=== PATIENT | female | born 1970 | race Caucasian/White ===

== ENCOUNTER 2016-06-09 11:20 | Emergency (ER) | payer BC ==
[2016-06-09 12:09] VITALS: BP 128/82
--- NOTE | 2016-06-09 12:22 | EDM.PDOC ---
ED HPI Trauma - General Chief Complaint: Lower Extremity Injury/Pain Stated Complaint: ? [id number] Time Seen by Provider: 06/09/16 12:15 Source: Reports: Patient, RN, RN notes reviewed History Limitations: Reports: No limitations - History of Present Illness INITIAL COMMENTS - FREE TEXT/NARRATIVE: Low back pain onset yesterday, radiating into left buttock to left proximal thigh. Denies injury. Denies weakness, numbness, or loss of bowel or bladder control. Patient is being treated for a cough with COPD exacerbation and is currently on Levaquin, prednisone and breathing treatments. Coughing may have caused her back to flare up. History of sciatica. Severity: severe Pain/Injury Location: Reports: back Associated Symptoms: Reports: no other symptoms Allergies/ADRs: Allergies No Known Allergies Allergy (Verified 07/31/13 17:49) Home Medications: Ambulatory Orders Budesonide/Formoterol [Symbicort 160-4.5 MCG] 1 puff INH BID 04/26/14 [ Confirmed 04/26/14] Lisinopril 10 mg PO DAILY 04/26/14 [Confirmed 04/26/14] Simvastatin 20 mg PO DAILY 04/26/14 [Confirmed 04/26/14] Tiotropium [Spiriva HandiHaler] 1 puff INH DAILY 04/26/14 [Confirmed 04/26/14] Insulin Detemir [Levemir Flextouch] 15 unit SQ BIDAC #1 each 04/29/14 glyBURIDE [Micronase] 5 mg PO BIDM #60 tablet 04/29/14 metFORMIN [Glucophage] 1,000 mg PO BIDM #60 tablet 04/29/14 Past Medical History Cardiovascular History: Reports: High cholesterol, Hypertension Respiratory History: Reports: COPD, Other (see below) Other Respiratory History: recent bronchitis Endocrine/Metabolic History: Reports: Diabetes, type II Social & Family History - Family History Family Medical History: Noncontributory - Tobacco Use Smoking Status *Q: Current Every Day Smoker Years of Tobacco use: 30 Packs/Tins Daily: 0.5 Used Tobacco, but Quit: No Second Hand Smoke Exposure: No - Caffeine Use Caffeine Use: Reports: Coffee, Soda, Tea - Alcohol Use Days Per Week of Alcohol Use: 2 Number of Drinks Per Day: 8 Total Drinks Per Week: 16 - Recreational Drug Use Recreational Drug Use: No Review of Systems - Review of Systems Review Of Systems: ROS reveals no pertinent complaints other than HPI. Trauma Exam - Physical Exam Exam: See Below Exam Limited By: No limitations General Appearance: Reports: alert Head: Reports: atraumatic, normocephalic Eyes: bilateral eye: normal inspection Ears: Reports: normal external exam, normal canal, hearing grossly normal, normal TMs Nose: Reports: normal inspection, normal mucousa, no blood Throat/Mouth: Reports: Other (mild pharyngeal erythema.) Neck: Reports: non-tender, full range of motion, normal alignment, normal inspection Respiratory Exam: Reports: rhonchi (Course wet bibasilar rhonchi that clears with cough.), wheezing (bilateral wheezing throughout. ) Cardiovascular: Reports: normal peripheral pulses, regular rate, rhythm, no edema, no gallop, no JVD, no murmur, no rub GI/Abdominal: Reports: normal bowel sounds, soft, non tender, no organomegaly, no distention, no abnormal bruit, no mass Back: Reports: other (left lumbar paraspinal tenderness with muscle spasm. No vertebral tenderness. Decreased lumbar ROM due to pain. Normal gait. 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, no motor/sensory deficits, alert , normal mood/affect, oriented x 3 Skin: Reports: Normal color, Warm/dry Course - Vital Signs Last Recorded V/S: Last Vital Signs Temp 35.9 C 06/09/16 12:08 Pulse 148 H 06/09/16 12:08 Resp 16 06/09/16 12:08 BP 128/82 06/09/16 12:08 Pulse Ox 96 06/09/16 12:08 - Orders/Labs/Meds Orders: Active Orders 24 hr Category Date Time Status Chest 2V [CR] Stat Exams 06/09/16 12:22 Taken Lumbar Spine 2 or 3V [CR] Urgent Exams 06/09/16 12:21 Taken CULTURE STREP A CONFIRMATION [RM] Stat Lab 06/09/16 12:26 Results STREP SCRN A RAPID W CULT CONF [RM] Stat Lab 06/09/16 12:26 Results Labs: Rapid strep: Negative. - Radiology Interpretation Free Text/Narrative:: X-ray lumbosacral spine: Per rad report normal lumbar spine. X-ray chest: Per rad report shows normal chest x-ray. Departure - Departure Time of Disposition: 13:34 Disposition: Home, Self-Care 01 Condition: good Clinical Impression: COPD exacerbation Acute low back pain with left-sided sciatica Qualifiers: Back pain laterality: left Qualified Code(s): M54.42 - Lumbago with sciatica, left side Instructions: Sciatica, Chronic Obstructive Pulmonary Disease, [id number] Referrals: PCP,None [Primary Care Provider] - Forms: ED Department Discharge Additional Instructions: Cyclobenzoprine 10mg. * [place] 5mg/325mg. * * Do not drive while taking these medications*. Activity as tolerated. Follow up in clinic in 3-4 days - My Orders Last 24 Hours: My Active Orders 06/09/16 12:21 Lumbar Spine 2 or 3V [CR] Urgent 06/09/16 12:22 Chest 2V [CR] Stat 06/09/16 12:26 CULTURE STREP A CONFIRMATION [RM] Stat STREP SCRN A RAPID W CULT CONF [RM] Stat - Assessment/Plan Last 24 Hours: My Active Orders 06/09/16 12:21 Lumbar Spine 2 or 3V [CR] Urgent 06/09/16 12:22 Chest 2V [CR] Stat 06/09/16 12:26 CULTURE STREP A CONFIRMATION [RM] Stat STREP SCRN A RAPID W CULT CONF [RM] Stat
[2016-06-09] MEDS ORDERED: Cyclobenzaprine 10 MG Tab PO ONE (13:41)
[2016-06-09] MEDS ORDERED: Acetaminophen/HYDROcodone 325-10 MG Tab PO ONE (13:41)
== END 2016-06-09 13:55 | disposition home or self-care (01) ==
LOC: DL.ED 11:20
DX: M54.42 Lumbago with sciatica, left side (principal); J44.1 Chronic obstructive pulmonary disease with (acute) exacerbation; E78.00 Pure hypercholesterolemia, unspecified; I10 Essential (primary) hypertension; E11.9 Type 2 diabetes mellitus without complications; F17.210 Nicotine dependence, cigarettes, uncomplicated
CPT/HCPCS: 71020; 72100; 87081; 87430; 99283; A9270

== ENCOUNTER 2020-04-11 06:24 | Day surgery (SDC) | payer BC ==
[~2020-04-11 06:24] MED LIST: Midazolam 1 MG/ML 2 ML SDV ONE; fentaNYL 100 MCG/2 ML SDV ONE
[2020-04-11] MEDS ORDERED: fentaNYL 100 MCG/2 ML SDV IV ONE ×5 (06:25→07:37)
[2020-04-11] MEDS ORDERED: Midazolam 1 MG/ML 2 ML SDV IV ONE ×7 (06:25→07:36)
[2020-04-11] MEDS ORDERED: Dextrose 5%-0.45% NaCl 1,000 ML IV SCH (07:30)
--- NOTE | 2020-04-11 08:32 | OR ---
DATE: 04/11/2020 PREOPERATIVE DIAGNOSIS: Screening colonoscopy. POSTOPERATIVE DIAGNOSIS: Screening colonoscopy. PROCEDURE: Total colonoscopy with snare excision of polyp at the sigmoid left colon junction. ANESTHESIA: Conscious sedation with IV Versed and fentanyl. SPECIMEN: Polyp. OPERATIVE FINDING: Single polyp at the junction about the lower left colon and sigmoid colon. RECOMMENDATIONS: Followup screening colonoscopy in 5 years. INDICATIONS FOR PROCEDURE: This 50-year-old female presents for screening colonoscopy. PROCEDURE IN DETAIL: After adequate preparation, a colonoscope was inserted into the rectum. This was easily passed all the way to the cecum. Confirmation of the cecum was made by visualization of the ileocecal valve and palpation in the right lower quadrant. The bowel prep was excellent. On withdrawal of the scope, the only abnormality noted was a small pedunculated polyp at the junction of the lower left colon in the sigmoid area. The anal and rectal examinations are normal. There were no other polyps, masses, or evidence of diverticulosis. Pathology is pending. Air was suctioned from the colon and the scope removed. [facility] /[id number]
[2020-04-11 11:07] VITALS: BP 121/65; PULSE 93
== END 2020-04-11 09:50 | disposition home or self-care (01) ==
LOC: DL.ENDO 06:24
PROVIDERS: ATTEND Surgery
DX: Z12.11 Encounter for screening for malignant neoplasm of colon (principal); D12.5 Benign neoplasm of sigmoid colon; Z01.812 Encounter for preprocedural laboratory examination; Z20.822 Contact with and (suspected) exposure to COVID-19
CPT/HCPCS: 45385; 87635; J2250; J3010; J7042; U0002

== ENCOUNTER 2022-06-25 16:23 | Emergency (ER) | payer BC, OTHER ==
[2022-06-25] MEDS ORDERED: Sodium Chloride 0.9% 10 ML Syringe FLUSH PRN (16:38)
[2022-06-25] MEDS ORDERED: Sodium Chloride 0.9% 1,000 ML IV ONE ×2 (16:40→17:40)
[2022-06-25 17:16] VITALS: BP 154/76; PULSE 95
[2022-06-25 17:26] LABS: CHLORIDE,CL 91 mmol/L (98-107); SODIUM,NA 127 mmol/L (136-145)
[2022-06-25 17:28] LABS: ESTIMATED GFR 76 mL/min (>=60)
[2022-06-25 17:30] LABS: BASE EXCESS VENOUS 0.1 mmol/l ((-2)-(+3)); BICARBONATE,VENOUS 24 mmol/l (19-25); O2 DELIVERY DEVICE ROOM AIR; O2 SATURATION VENOUS 78.9 % (60-80); PCO2 VENOUS 41 mmHg (41-51); PO2 VENOUS 44 mmHg (35-42)
[2022-06-25] MEDS ORDERED: 50% Dextrose in Water 50 ML Syringe IVPUSH PRN (17:41)
[2022-06-25] MEDS ORDERED: Insulin Regular, Human 100 Units/ML 3 ML Vial IV ONE (17:41)
[2022-06-25] MEDS ORDERED: Glucagon,Human Recombinant 1 MG Vial IM PRN (17:41)
== END 2022-06-25 19:03 | disposition home or self-care (01) ==
LOC: DL.ED 16:23
DX: E11.65 Type 2 diabetes mellitus with hyperglycemia (principal); E78.5 Hyperlipidemia, unspecified; J44.9 Chronic obstructive pulmonary disease, unspecified; E78.00 Pure hypercholesterolemia, unspecified; I10 Essential (primary) hypertension; E66.9 Obesity, unspecified; Z68.30 Body mass index [BMI] 30.0-30.9, adult; Z79.899 Other long term (current) drug therapy; Z72.0 Tobacco use; Z79.84 Long term (current) use of oral hypoglycemic drugs
CPT/HCPCS: 36415; 80053; 81003; 82009; 82150; 82803; 82947; 83605; 83690; 84484; 85025; 86140; 93005; 93010; 96360; 96361; 99284; 99284-25; J1815-GY; J3490; J7030

== ENCOUNTER 2023-05-16 12:25 | Emergency (ER) | payer OTHER, BC ==
[2023-05-16] MEDS ORDERED: Ketorolac 30 MG/ML SDV ONE (12:41)
[2023-05-16] MEDS ORDERED: HYDROmorphone 0.5 MG/0.5 ML Syringe IVPUSH ONE (12:43)
[2023-05-16] MEDS: Ketorolac 30 MG/ML SDV IVPUSH ONE (12:43)
[2023-05-16] MEDS: HYDROmorphone 0.5 MG/0.5 ML Syringe ONE (12:45)
[2023-05-16 13:11] VITALS: BP 165/83; PULSE 88
[2023-05-16] MEDS ORDERED: Lidocaine 2% 100 MG/5 ML Syringe ONE (13:37)
[2023-05-16] MEDS: HYDROmorphone 0.5 MG/0.5 ML Syringe IVPUSH ONE (13:46)
[2023-05-16] MEDS: Lidocaine 1% 30 ML SDV ONE (13:55)
[2023-05-16] MEDS: cefTRIAXone 1 GM Vial IVPUSH ONE (15:33)
== END 2023-05-16 15:40 | disposition home or self-care (01) ==
LOC: DL.ED 12:25
DX: S92.422B Displaced fracture of distal phalanx of left great toe, initial encounter for open fracture (principal); I10 Essential (primary) hypertension; E78.00 Pure hypercholesterolemia, unspecified; J44.9 Chronic obstructive pulmonary disease, unspecified; E11.9 Type 2 diabetes mellitus without complications; Z90.49 Acquired absence of other specified parts of digestive tract; Z90.710 Acquired absence of both cervix and uterus; Z79.84 Long term (current) use of oral hypoglycemic drugs; Z79.899 Other long term (current) drug therapy; W23.0XXA Caught, crushed, jammed, or pinched between moving objects, initial encounter
CPT/HCPCS: 11760; 12001; 73620; 96374; 96375; 99283; J0696; J1170; J1885; J3490